=== PATIENT | female | born 1995 | race African-American/Black ===

== ENCOUNTER 2018-11-06 10:27 | Emergency (ER) | payer MEDICAID, OTHER ==
[~2018-11-06] VITALS: Ht 160 cm; Wt 67.9 kg
[2018-11-06] MEDS ORDERED: IBUPROFEN 600MG TABLET PO STA (11:54)
[2018-11-06 12:00] VITALS: BP 110/76
== END 2018-11-06 14:59 | disposition home or self-care (01) ==
LOC: EDBD 10:27 → ER 10:27 → EDSEX 10:27 → ER 14:59
DX: R07.89 Other chest pain (principal); R05 Cough; F17.210 Nicotine dependence, cigarettes, uncomplicated; Z71.6 Tobacco abuse counseling; F12.90 Cannabis use, unspecified, uncomplicated
CPT/HCPCS: 71045; 81025; 93005; 99283; 99406

== ENCOUNTER 2019-10-24 17:34 | Emergency (ER) | payer SELFPAY ==
[~2019-10-24] VITALS: Ht 160 cm; Wt 63.0 kg
[2019-10-24 20:35] VITALS: BP 121/72
== END 2019-10-24 22:53 | disposition left against medical advice (07) ==
LOC: ER 17:34
DX: R07.89 Other chest pain (principal); Z53.21 Procedure and treatment not carried out due to patient leaving prior to being seen by health care provider
CPT/HCPCS: 93005; 99283

== ENCOUNTER 2019-10-25 16:43 | Emergency (ER) | payer SELFPAY | END 2019-10-25 17:33 | disposition left against medical advice (07) | LOC: ER 16:43 | DX: Z53.21 Procedure and treatment not carried out due to patient leaving prior to being seen by health care provider (principal) ==

== ENCOUNTER 2019-10-25 17:53 | Emergency (ER) | payer SELFPAY ==
[~2019-10-25] VITALS: Ht 160 cm; Wt 64.0 kg
[2019-10-25] MEDS ORDERED: IBUPROFEN 600MG TABLET PO STA (21:19)
[2019-10-25 22:56] VITALS: BP 110/75
== END 2019-10-25 22:57 | disposition home or self-care (01) ==
LOC: ER 17:59
DX: R07.89 Other chest pain (principal); R05 Cough
CPT/HCPCS: 71045; 93005; 99283

== ENCOUNTER 2019-11-17 15:13 | Emergency (ER) | payer SELFPAY ==
[~2019-11-17] VITALS: Ht 160 cm; Wt 70.0 kg
[2019-11-17 17:35] VITALS: BP 120/68
== END 2019-11-17 17:35 | disposition home or self-care (01) ==
LOC: ER 15:13
DX: S93.402A Sprain of unspecified ligament of left ankle, initial encounter (principal); X58.XXXA Exposure to other specified factors, initial encounter; Y93.02 Activity, running; Y92.89 Other specified places as the place of occurrence of the external cause; F17.210 Nicotine dependence, cigarettes, uncomplicated; Z71.6 Tobacco abuse counseling; F12.90 Cannabis use, unspecified, uncomplicated
CPT/HCPCS: 99282; 99406

== ENCOUNTER 2023-05-02 08:43 | Emergency (ER) | payer MEDICAID ==
[~2023-05-02] VITALS: Ht 160 cm; Wt 81.0 kg
[2023-05-02 09:38] LABS: BASOPHILS % 0.3 % (0.0-2.0); EOSINOPHILS % 1.8 % (0.0-5.0); HEMATOCRIT. 35.8 % (36.0-48.0); HEMOGLOBIN. 11.9 g/dL (12.0-16.0); LYMPHOCYTES % 36.4 % (20.0-50.0); MEAN CORPUSCULAR HEMOGLOBIN 29.4 pg (28.0-32.0); MEAN CORPUSCULAR VOLUME 88.7 fL (81.0-99.0); MEAN PLATELET VOLUME 7.1 fl (7.4-10.4); MONOCYTES % 8.8 % (2.0-8.0); NEUTROPHILS % 52.7 % (40.0-76.0); PLATELET 294 x1000/uL (130-400); RED BLOOD CELL COUNT 4.04 mill/uL (4.2-5.4); RED CELL DISTRIBUTION WIDTH 14.5 % (11.6-14.6)
[2023-05-02 09:46] LABS: CHLORIDE 108 mEq/L (98-107)
[2023-05-02] MEDS ORDERED: ACETAMINOPHEN 325MG TABLET PO ONE (11:15)
[2023-05-02] MEDS ORDERED: IBUPROFEN 800MG TABLET PO ONE (11:15)
[2023-05-02] MEDS ORDERED: TOPUD MT (11:24)
[2023-05-02] MEDS ORDERED: IBUP-1525 MT (11:24)
[2023-05-02 11:30] VITALS: BP 118/78
[2023-05-02] MEDS ORDERED: IBUPROFEN 400MG TABLET PO NR (11:30)
[2023-05-02] MEDS ORDERED: ACETAMINOPHEN 325MG TABLET PO NR (11:30)
== END 2023-05-02 11:51 | disposition home or self-care (01) ==
LOC: ER 08:43
DX: M79.602 Pain in left arm (principal); R07.89 Other chest pain; F12.10 Cannabis abuse, uncomplicated
CPT/HCPCS: 36415; 71045; 80053; 84484; 85025; 99284